=== PATIENT | male | born 1955 | race Caucasian/White ===

== ENCOUNTER 2017-04-13 08:20 | Outpatient (RCR) | payer OTHER ==
[2017-02-13 10:54] VITALS: BMI 25.5
[2017-03-30] MEDS: diphenhydrAMINE 25 MG CAP PO PRN (10:01)
[2017-03-30] MEDS: ACETAMINOPHEN 325 MG TAB PO PRN (10:01)
[2017-03-30] MEDS: methylPREDNIS SUCC 125 MG/2ML IVP PRN (10:02)
[2017-03-30 10:56] VITALS: BP 154/91
[2017-03-30 13:57] VITALS: BP 143/93
[~2017-04-13 08:20] MED LIST: ALL300 PO; ALLO-119 PO; AMLO-99 PO; AMOX-559 PO; AZAT50TA25 PO; BEN20 PO; BENA10TA4 PO; COLC0.6T2 PO; DEXTROSE 5%(*) 100 ML BAG 100 ML IVPB PRN; DULERAPT INH; ENOX80DI8 SQ; HYD2 PO; INDO50CA92 PO; LIDOCAINE/SOD BICARB 8.4% SYR ID PRN; LIN600 PO; NS(*) 0.9% 100 ML BAG 100 ML IVPB PRN; PRED2.5T6 PO; PRED20TA6 PO; SULF1TAB24 PO; TIMO5DRO3 OP; TRAM-420 PO; WARF-1 PO; WARF10TA29 PO; WARF5TAB23 PO; WARF7.5T32 PO; [UNRECOGNIZED DRUG - REMARK]; riTUXimab 500 MG/50 ML SDV 1,000 MG in NS(*) 0.9% 1000 ML BAG 900 ML IV ONE
[2017-04-13 08:24] VITALS: BP 147/96
[2017-04-13] MEDS: methylPREDNIS SUCC 125 MG/2ML IVP PRN (08:27)
[2017-04-13] MEDS: ACETAMINOPHEN 325 MG TAB PO PRN (08:27)
[2017-04-13] MEDS: diphenhydrAMINE 25 MG CAP PO PRN (08:27)
[2017-04-13] MEDS ORDERED: riTUXimab 500 MG/50 ML SDV 1,000 MG in NS(*) 0.9% 1000 ML BAG 900 ML IV ONE (09:00)
[2017-04-13 12:32] VITALS: BP 142/84
[2017-04-14] MEDS ORDERED: AMLO-99 PO (16:45)
[2017-04-21] MEDS ORDERED: ALLO-119 PO (13:41)
[2017-04-26] MEDS ORDERED: RIT100I IV (09:35)
[2017-04-26] MEDS ORDERED: PRED-420 PO (09:37)
[2017-04-29] MEDS ORDERED: ALLO-119 PO (17:01)
[2017-05-10] MEDS ORDERED: AMLO-99 PO (08:36)
[2017-05-10] MEDS ORDERED: ATOR20TA65 PO (16:12)
[2017-05-17] MEDS ORDERED: ALLO-119 PO (09:07)
== END 2017-05-12 10:49 | disposition home or self-care (01) ==
LOC: SPU 08:20
PROVIDERS: ATTEND Internal Medicine Critical Care Medicine
DX: M30.0 Polyarteritis nodosa (principal)
CPT/HCPCS: 96367; 96375; 96413; 96415; J2930; J7030; J7050; J9310; Q0163

== ENCOUNTER → 2017-06-03 | Outpatient (CLI) | payer OTHER ==
[2017-02-13 10:54] VITALS: BMI 25.5
[~2017-06-03] MED LIST changes: +ATOR20TA65 PO; -DEXTROSE 5%(*) 100 ML BAG 100 ML IVPB PRN; -LIDOCAINE/SOD BICARB 8.4% SYR ID PRN; -NS(*) 0.9% 100 ML BAG 100 ML IVPB PRN; +PRED-420 PO; +RIT100I IV; +WARF7.5T13 PO; -WARF7.5T32 PO; -riTUXimab 500 MG/50 ML SDV 1,000 MG in NS(*) 0.9% 1000 ML BAG 900 ML IV ONE
[2017-06-03 14:41] LABS: PLATELET COUNT, AUTOMATED 240 K/uL (150-450)
[2017-06-03 14:51] LABS: INR 1.37
== END ==
LOC: LAB 14:16
PROVIDERS: ATTEND Internal Medicine
DX: R10.9 Unspecified abdominal pain (principal); I10 Essential (primary) hypertension; R39.198 Other difficulties with micturition; R06.09 Other forms of dyspnea; M31.30 Wegener's granulomatosis without renal involvement; Z86.718 Personal history of other venous thrombosis and embolism; I77.6 Arteritis, unspecified
CPT/HCPCS: 36415; 81001; 82040; 82150; 82247; 82310; 82374; 82435; 82565; 82947; 83690; 84075; 84132; 84155; 84295; 84443; 84450; 84460; 84520; 84550; 85025; 85610; 85651; 86038; 86140; 86200; 86430

== ENCOUNTER → 2017-09-08 | Outpatient (CLI) | payer OTHER ==
[2017-02-13 10:54] VITALS: BMI 25.5
[~2017-09-08] MED LIST changes: +PENT400T57 PO
--- NOTE | 2017-09-08 10:48 | RADIOLOGY IMAGING REPORT ---
FACILITY: [facility] PATIENT NAME: Jonatan Sifuentes : 1955 MR: [id number] V: [id number] EXAM DATE: ORDERING PHYSICIAN: RAMSES LOMAX TECHNOLOGIST: Location: [facility] Patient: Jonatan Sifuentes : 1955 Visit/Account:[id number] Date of Sevice: 09/08/2017 Exam type: ELBOW 3 VIEWS RIGHT History: rt elbow pain, bursitis COMPARISON: None Findings: There is a small olecranon spur. Mild soft tissue prominence superficial to the olecranon process may represent olecranon bursitis as the clinical history suggests. There is no evidence of a cute fracture dislocation. IMPRESSION: 1. Small olecranon spur and soft tissue prominence superficial to the alexsandra process which may repre sent olecranon bursitis as the clinical history suggests Report Dictated By: Tila Manzano MD at 09/08/2017 10:40 AM Report E-Signed By: Tila Manzano MD at 09/08/2017 10:42 AM WSN:[id number]
== END ==
LOC: RAD 08:29
PROVIDERS: ATTEND Internal Medicine
DX: M71.521 Other bursitis, not elsewhere classified, right elbow (principal)

== ENCOUNTER → 2017-09-10 | Outpatient (CLI) | payer OTHER ==
[2017-02-13 10:54] VITALS: BMI 25.5
[2017-09-10 07:04] LABS: LDL CHOLESTEROL 40 mg/dl; PLATELET COUNT, AUTOMATED 253 K/uL (150-450)
[2017-09-10 07:15] LABS: INR 1.97
== END ==
LOC: LAB 06:37
PROVIDERS: ATTEND Internal Medicine
DX: I77.6 Arteritis, unspecified (principal); Z86.718 Personal history of other venous thrombosis and embolism; M31.30 Wegener's granulomatosis without renal involvement; I10 Essential (primary) hypertension; E78.5 Hyperlipidemia, unspecified; I87.2 Venous insufficiency (chronic) (peripheral)
CPT/HCPCS: 36415; 82040; 82247; 82310; 82374; 82435; 82465; 82565; 82947; 83718; 84075; 84132; 84155; 84295; 84450; 84460; 84478; 84520; 84550; 85025; 85610

== ENCOUNTER 2018-05-31 08:00 | Outpatient (RCR) | payer OTHER ==
[2017-02-13 10:54] VITALS: BMI 25.5
[~2018-05-31 08:00] MED LIST changes: +ACETAMINOPHEN 325 MG TAB PO PRN; +AMLO-127 PO; -AMLO-99 PO; -BENA10TA4 PO; +BENA10TA55 PO; +DEXTROSE 5%(*) 100 ML BAG 100 ML IVPB PRN; +INDO-23 PO; -INDO50CA92 PO; +LIDOCAINE/SOD BICARB 8.4% SYR ID PRN; +NS(*) 0.9% 100 ML BAG 100 ML IVPB PRN; +diphenhydrAMINE 25 MG CAP PO PRN; +methylPREDNIS SUCC 125 MG/2ML IVP PRN
[2018-05-31 08:17] VITALS: BP 139/87
[2018-05-31] MEDS ORDERED: riTUXimab 500 MG/50 ML SDV 1,000 MG in NS(*) 0.9% 1000 ML BAG 900 ML IV ONE (09:00)
[2018-05-31 13:40] VITALS: BP 144/90
--- NOTE | 2018-06-03 09:24 | NUR ---
Pt completed initial HADS screening. Pt scored D:6, A: 5. SW visited with the pt about these scores and reported no further concerns.
== END 2018-07-29 13:26 | disposition home or self-care (01) ==
LOC: SPU 08:00
PROVIDERS: ATTEND Internal Medicine Critical Care Medicine
DX: M30.0 Polyarteritis nodosa (principal)
CPT/HCPCS: 96375; 96413; 96415; J2930; J7030; J7050; J9312; Q0163

== ENCOUNTER → 2018-09-21 | Outpatient (CLI) | payer OTHER ==
[2017-02-13 10:54] VITALS: BMI 25.5
[~2018-09-21] MED LIST changes: -ACETAMINOPHEN 325 MG TAB PO PRN; +ALPR-448 PO; -DEXTROSE 5%(*) 100 ML BAG 100 ML IVPB PRN; -LIDOCAINE/SOD BICARB 8.4% SYR ID PRN; -NS(*) 0.9% 100 ML BAG 100 ML IVPB PRN; -PENT400T57 PO; +PENT400T83 PO; +PRE5 PO; -diphenhydrAMINE 25 MG CAP PO PRN; -methylPREDNIS SUCC 125 MG/2ML IVP PRN
[2018-09-21 16:45] LABS: PLATELET COUNT, AUTOMATED 225 K/uL (150-450)
[2018-09-21 17:34] LABS: LDL CHOLESTEROL 66 mg/dl
== END ==
LOC: LAB 16:14
PROVIDERS: ATTEND Internal Medicine
DX: M10.9 Gout, unspecified (principal); I10 Essential (primary) hypertension; E78.5 Hyperlipidemia, unspecified; M31.30 Wegener's granulomatosis without renal involvement; Z86.718 Personal history of other venous thrombosis and embolism
CPT/HCPCS: 36415; 81001; 82040; 82247; 82310; 82374; 82435; 82465; 82565; 82947; 83718; 84075; 84132; 84153; 84155; 84295; 84443; 84450; 84460; 84478; 84520; 84550; 85025